=== PATIENT | female | born 1970 | race Caucasian/White ===

== ENCOUNTER 2017-02-12 17:10 | Emergency (ER) | payer OTHER ==
[~2017-02-12] VITALS: Ht 157.5 cm; Wt 60.0 kg
[2017-02-12] MEDS ORDERED: TETANUS, DIPHTHERIA, PERTUSSIS VAC/PF 0.5ML (>7YR OLD) IM ONE (18:45)
[2017-02-12] MEDS ORDERED: BACITRACIN ZINC OINT UDPKT TOP ONE (18:45)
[2017-02-12 19:18] LABS: HCG SCREEN NEGATIVE
[2017-02-12 21:03] VITALS: BP 120/70
== END 2017-02-12 20:20 | disposition home or self-care (01) ==
LOC: ER 18:35
DX: S61.217A Laceration without foreign body of left little finger without damage to nail, initial encounter (principal); W45.8XXA Other foreign body or object entering through skin, initial encounter; Y93.89 Activity, other specified; Y92.89 Other specified places as the place of occurrence of the external cause; Y99.8 Other external cause status
CPT/HCPCS: 73130; 84703; 90471; 90715; 99285; X7700

== ENCOUNTER 2021-09-14 13:28 | Emergency (ER) | payer OTHER ==
[~2021-09-14] VITALS: Ht 157.5 cm; Wt 58.0 kg
[2021-09-14 13:55] VITALS: BP 130/67
[2021-09-14] MEDS ORDERED: BACITRACIN ZINC OINT UDPKT TOP ONE (18:45)
[2021-09-14] MEDS ORDERED: TETANUS, DIPHTHERIA, PERTUSSIS VAC/PF 0.5ML (>10YR OLD) IM ONE (18:45)
== END 2021-09-14 19:04 | disposition home or self-care (01) ==
LOC: ER 14:01
DX: S61.211A Laceration without foreign body of left index finger without damage to nail, initial encounter (principal); W26.0XXA Contact with knife, initial encounter; Y93.G3 Activity, cooking and baking; Y92.010 Kitchen of single-family (private) house as the place of occurrence of the external cause
CPT/HCPCS: 73140; 90471; 90715; 99283

== ENCOUNTER 2022-08-19 17:48 | Emergency (ER) | payer OTHER ==
[~2022-08-19] VITALS: Ht 167.6 cm; Wt 66.0 kg
[2022-08-19 17:52] VITALS: O2SAT 99
[2022-08-19] MEDS ORDERED: ONDANSETRON HCL 4MG/2ML INJ IV STA (18:12)
[2022-08-19] MEDS ORDERED: MORPHINE SULFATE 4 MG/ML CPJ (NOT FOR IM USE) IV STA (18:12)
[2022-08-19] MEDS ORDERED: SODIUM CHLORIDE 0.9% 1,000 ML IV ONE (18:15)
[2022-08-19 18:25] VITALS: BP 145/81; PULSE 88; RESP 16; TEMP 98.4
[2022-08-19 18:39] LABS: BASOPHILS % 0.5 % (0.0-2.0); EOSINOPHILS % 0.4 % (0.0-5.0); HEMATOCRIT. 42.5 % (36.0-48.0); LYMPHOCYTES % 24.5 % (20.0-50.0); MEAN CORPUSCULAR HEMOGLOBIN 28.8 pg (28.0-32.0); MEAN CORPUSCULAR VOLUME 87.4 fL (81.0-99.0); MEAN PLATELET VOLUME 9.5 fl (7.4-10.4); MONOCYTES % 4.8 % (2.0-8.0); NEUTROPHILS % 69.8 % (40.0-76.0); PLATELET 290 x1000/uL (130-400); RED BLOOD CELL COUNT 4.87 mill/uL (4.2-5.4); RED CELL DISTRIBUTION WIDTH 13.7 % (11.6-14.6)
[2022-08-19 18:48] LABS: HCG SCREEN NEGATIVE
[2022-08-19 18:59] LABS: PROTHROMBIN TIME 10.9 sec (9.6-11.0)
[2022-08-19 19:06] LABS: CHLORIDE 107 mEq/L (98-107)
[2022-08-19] MEDS ORDERED: KETOROLAC 30MG/ML VIAL IV ONE (20:00)
[2022-08-19 20:12] LABS: CLARITY URINE CLEAR (CLEAR); COLOR URINE YELLOW (YELLOW); KETONES URINE 3+ (NEGATIVE); LEUKOCYTE ESTERASE URINE NEGATIVE (NEGATIVE); NITRITE URINE NEGATIVE (NEGATIVE); OCCULT BLOOD URINE NEGATIVE (NEGATIVE); PROTEIN URINE NEGATIVE (NEGATIVE); SPECIFIC GRAVITY URINE 1.017 (1.005-1.030); UROBILINOGEN URINE 0.2 E.U./dL (0.2-1.0)
[2022-08-19] MEDS ORDERED: IBUP-2029 MT (20:26)
== END 2022-08-19 22:43 | disposition home or self-care (01) ==
LOC: ER 17:48
DX: D25.9 Leiomyoma of uterus, unspecified (principal); N20.0 Calculus of kidney
CPT/HCPCS: 80053; 81003; 84703; 83690; 85025; 85610; 86850; 86900; 86901; 36415; 74176; 96374; 96375; 99285; J1885; J2405; J2270; J7030; Z7610

== ENCOUNTER 2022-08-24 16:31 | Emergency (ER) | payer MEDICAID, OTHER ==
[~2022-08-24] VITALS: Ht 157.5 cm; Wt 56.7 kg
[~2022-08-24 16:31] MED LIST: IBUP-2029 MT
[2022-08-24 16:42] VITALS: BP 136/81; O2SAT 97
[2022-08-24 16:46] VITALS: PULSE 110; RESP 16; TEMP 98.5
[2022-08-24 17:15] LABS: BASOPHILS % 0.7 % (0.0-2.0); EOSINOPHILS % 0.7 % (0.0-5.0); HEMATOCRIT. 42.4 % (36.0-48.0); LYMPHOCYTES % 27.4 % (20.0-50.0); MEAN CORPUSCULAR HEMOGLOBIN 28.6 pg (28.0-32.0); MEAN CORPUSCULAR VOLUME 86.8 fL (81.0-99.0); MEAN PLATELET VOLUME 9.2 fl (7.4-10.4); MONOCYTES % 5.7 % (2.0-8.0); NEUTROPHILS % 65.5 % (40.0-76.0); PLATELET 270 x1000/uL (130-400); RED BLOOD CELL COUNT 4.89 mill/uL (4.2-5.4); RED CELL DISTRIBUTION WIDTH 13.7 % (11.6-14.6)
[2022-08-24 17:29] LABS: CHLORIDE 108 mEq/L (98-107)
[2022-08-24 20:07] LABS: CLARITY URINE CLEAR (CLEAR); COLOR URINE YELLOW (YELLOW); KETONES URINE 1+ (NEGATIVE); LEUKOCYTE ESTERASE URINE NEGATIVE (NEGATIVE); NITRITE URINE NEGATIVE (NEGATIVE); OCCULT BLOOD URINE NEGATIVE (NEGATIVE); PROTEIN URINE NEGATIVE (NEGATIVE); SPECIFIC GRAVITY URINE 1.024 (1.005-1.030)
[2022-08-24] MEDS ORDERED: KETOROLAC 30MG/ML VIAL IM ONE (21:15)
[2022-08-24] MEDS ORDERED: ACETAMINOPHEN 325MG TABLET PO ONE (21:15)
[2022-08-24] MEDS ORDERED: IBUP-2029 MT (21:49)
[2022-08-25] MEDS ORDERED: IBUP-2029 MT (15:58)
[2022-08-25] MEDS ORDERED: HYDR-4001 MT (15:58)
== END 2022-08-24 22:00 | disposition home or self-care (01) ==
LOC: ER 16:58
DX: R10.30 Lower abdominal pain, unspecified (principal)
CPT/HCPCS: 80053; 81003; 81025; 83690; 85025; 36415; 96372; 99283; J1885; Z7610

== ENCOUNTER 2022-08-25 12:29 | Emergency (ER) | payer MEDICAID ==
[~2022-08-25] VITALS: Ht 154.9 cm; Wt 58.0 kg
[2022-08-25 12:41] VITALS: TEMP 98.6; O2SAT 97
[2022-08-25] MEDS ORDERED: MORPHINE SULFATE 4 MG/ML CPJ (NOT FOR IM USE) IV ONE (13:30)
[2022-08-25] MEDS ORDERED: SODIUM CHLORIDE 0.9% 1,000 ML IV ONE (13:30)
[2022-08-25] MEDS ORDERED: ONDANSETRON HCL 4MG/2ML INJ IV ONE (13:30)
[2022-08-25 13:51] LABS: BASOPHILS % 0.8 % (0.0-2.0); EOSINOPHILS % 0.9 % (0.0-5.0); HEMATOCRIT. 41.8 % (36.0-48.0); HEMOGLOBIN. 13.7 g/dL (12.0-16.0); LYMPHOCYTES % 29.2 % (20.0-50.0); MEAN CORPUSCULAR HEMOGLOBIN 28.9 pg (28.0-32.0); MEAN CORPUSCULAR VOLUME 88.2 fL (81.0-99.0); MEAN PLATELET VOLUME 9.6 fl (7.4-10.4); MONOCYTES % 5.5 % (2.0-8.0); NEUTROPHILS % 63.6 % (40.0-76.0); PLATELET 252 x1000/uL (130-400); RED BLOOD CELL COUNT 4.74 mill/uL (4.2-5.4); RED CELL DISTRIBUTION WIDTH 13.7 % (11.6-14.6)
[2022-08-25 13:54] LABS: CHLORIDE 106 mEq/L (98-107); PROTHROMBIN TIME 10.7 sec (9.6-11.0)
[2022-08-25 13:56] LABS: HCG SCREEN NEGATIVE
[2022-08-25 14:12] LABS: CLARITY URINE CLEAR (CLEAR); COLOR URINE YELLOW (YELLOW); KETONES URINE 2+ (NEGATIVE); LEUKOCYTE ESTERASE URINE 2+ (NEGATIVE); NITRITE URINE NEGATIVE (NEGATIVE); OCCULT BLOOD URINE NEGATIVE (NEGATIVE); PH URINE 6.5 (4.5-8.0); PROTEIN URINE NEGATIVE (NEGATIVE); SPECIFIC GRAVITY URINE 1.016 (1.005-1.030)
[2022-08-25] MEDS ORDERED: CEFTRIAXONE 1GM PREMIX 50 ML IV ONE (15:15)
[2022-08-25] MEDS ORDERED: HYDR-4001 MT (15:58)
[2022-08-25] MEDS ORDERED: IBUP-2029 MT (15:58)
[2022-08-25] MEDS ORDERED: CEFTRIAXONE 1GM PREMIX 50 ML IV SCH (17:45)
[2022-08-25] MEDS ORDERED: ONDANSETRON HCL 4MG/2ML INJ IV SCH (17:45)
[2022-08-25] MEDS ORDERED: MORPHINE SULFATE 4 MG/ML CPJ (NOT FOR IM USE) IV SCH (17:45)
[2022-08-25 17:54] VITALS: BP 130/76; PULSE 75; RESP 16
== END 2022-08-25 18:33 | disposition home or self-care (01) ==
LOC: ER 12:29
DX: D25.9 Leiomyoma of uterus, unspecified (principal)
CPT/HCPCS: 80053; 81003; 84703; 83605; 83690; 85025; 85610; 36415; 76700; 76856; 96365; 96375; 99285; J0696; J2405; J2270; J7030; Z7610 ×3